=== PATIENT | male | born 1975 | race Asian ===

== ENCOUNTER 2017-11-26 11:57 | Emergency (ER) | payer BC ==
[~2017-11-26] VITALS: Ht 175.3 cm; Wt 88.9 kg
[2017-11-26 12:00] VITALS: BP 156/95
[2017-11-26] MEDS ORDERED: KETOROLAC 30 MG/1 ML IM ONE (12:30)
[2017-11-26] MEDS ORDERED: KETOROLAC 30 MG/1 ML ONE (12:36)
== END 2017-11-26 13:50 | disposition home or self-care (01) ==
LOC: ED 12:27
DX: S83.92XA Sprain of unspecified site of left knee, initial encounter (principal); X58.XXXA Exposure to other specified factors, initial encounter; Y93.01 Activity, walking, marching and hiking; Y99.8 Other external cause status; Y92.89 Other specified places as the place of occurrence of the external cause
CPT/HCPCS: 29505; 73564; 96372; 99284; J1885; 99285